=== PATIENT | male | born 1965 | race Caucasian/White ===

== ENCOUNTER → 2016-08-23 | Outpatient (CLI) | payer OTHER | LOC: M LAB 13:51 | PROVIDERS: ATTEND Internal Medicine Gastroenterology | DX: K90.0 Celiac disease (principal); K21.9 Gastro-esophageal reflux disease without esophagitis ==

== ENCOUNTER 2017-11-24 12:34 | Day surgery (SDC) | payer OTHER ==
[2017-11-24] MEDS: NS 1,000 ML IV (13:40)
[2017-11-24] MEDS ORDERED: fentaNYL 100 MCG/2 ML INJECTION (J3010) As Ordered (14:20)
[2017-11-24] MEDS ORDERED: PROPOFOL 200 MG/20 ML VIAL As Ordered (14:21)
[2017-11-24] MEDS ORDERED: LIDOCAINE 2% INJ 100 MG/5 ML SDV (FOR ANES.) As Ordered (14:21)
== END 2017-11-24 15:30 | disposition home or self-care (01) ==
LOC: M SDC 15:30
DX: K90.0 Celiac disease (principal); Z12.11 Encounter for screening for malignant neoplasm of colon; M54.5 Low back pain; Z88.1 Allergy status to other antibiotic agents; Z88.5 Allergy status to narcotic agent; Z79.899 Other long term (current) drug therapy
CPT/HCPCS: 43239

== ENCOUNTER → 2019-04-11 | Outpatient (CLI) | payer OTHER ==
[~2019-04-11] MED LIST: TIZA4CAP PO; TRAM50TA2 PO
[2019-04-11 11:33] LABS: FREE T4 0.83 NG/DL (0.76-1.46); IMMUNOGLOBULIN A 52.4 MG/DL (70-400); THYROID STIMULATING HORMONE 1.47 uIU/ML (0.358-3.740)
== END ==
LOC: M LAB 09:31
PROVIDERS: ATTEND Internal Medicine Gastroenterology
DX: R15.1 Fecal smearing (principal)

== ENCOUNTER → 2019-05-23 | Outpatient (CLI) | payer OTHER ==
[~2019-05-23] MED LIST changes: +E-Z-PAQUE 96% w/w SUSP 176GM BTL As Ordered ONE
--- NOTE | 2019-05-23 14:38 | REP ---
Examination Requested: SBFT Reason For Exam: Fecal Smearing Small Bowel Follow Through The procedure was performed by NICOLA Houston, under the direct supervision of Dr. Hickman. The images were reviewed with Dr. Hickman. The guidance consultant film shows no organomegaly or pathological masses. The intestinal gas pattern appears normal. There is a dorsal column stimulator. There is a fusion of the L4, L5 and S1. The barium was administered and the barium column was followed through the small bowel to the level of the terminal ileum. Small bowel transit time was approximately 20 minutes. During fluoroscopy gentle palpation shows all loops are freely mobile and pliable. There are no fixed or angulated loops. The small bowel mucosal pattern is normal in course and caliber. There is no transition to suggest a partial small-bowel obstruction. Spot filming of the terminal ileum shows it to be unremarkable. The appendix was visualized. Impression: 1. Unremarkable small bowel follow-through 0.5 minutes of fluoroscopy time was utilized for this procedure. Some fluoroscopic images are performed with last image hold technology. These images require no additional radiation. Reviewed by NICOLA Jennings 05/23/2019 01:57 P Electronically Signed by Uriel Hickman MD 05/23/2019 02:29 P
== END ==
LOC: M RAD 08:31
PROVIDERS: ATTEND Internal Medicine Gastroenterology
DX: R15.1 Fecal smearing (principal)

== ENCOUNTER → 2020-01-15 | Outpatient (CLI) | payer OTHER ==
[~2020-01-15] MED LIST changes: +CETI10CA2 PO; +CITA20TA6; -E-Z-PAQUE 96% w/w SUSP 176GM BTL As Ordered ONE; +LIDO1PAD
== END ==
LOC: M LABSMTC 13:52
PROVIDERS: ATTEND Anesthesiology
DX: Z01.812 Encounter for preprocedural laboratory examination (principal); Z20.828 Contact with and (suspected) exposure to other viral communicable diseases
CPT/HCPCS: C9803; U0003

== ENCOUNTER 2020-01-20 12:11 | Day surgery (SDC) | payer OTHER ==
[~2020-01-20] VITALS: Ht 172.7 cm; Wt 78.5 kg
[~2020-01-20 12:11] MED LIST changes: -CETI10CA2 PO; +NS 1,000 ML IV ONE
[2020-01-20] MEDS ORDERED: CETI10CA2 PO (13:52)
[2020-01-20] MEDS ORDERED: propofoL 500 MG/50 ML VIAL As Ordered ONE (14:22)
[2020-01-20] MEDS ORDERED: fentaNYL 100 MCG/2 ML INJECTION (J3010) As Ordered ONE (14:22)
[2020-01-20] MEDS ORDERED: LIDOCAINE 2% 100MG/5ML SDV (FOR ANES.) As Ordered ONE (14:22)
--- NOTE | 2020-01-20 14:35 | ROOR ---
Patient Name: Chadwick Trevino Procedure Date: 01/20/2020 2:20 PM Date of : 1965 Age: 54 Room: [facility] Gender: Male Note Status: Finalized Procedure: Upper GI endoscopy Indications: Celiac disease, Selective IgA deficiency, Diarrhea Providers: Lorenzo SEBASTIAN MD Referring MD: JACOB CONLEY MD Requesting Provider: Medicines: Monitored Anesthesia Care Complications: No immediate complications. Procedure: Pre-Anesthesia Assessment: - The heart rate, respiratory rate, oxygen saturations, blood pressure, adequacy of pulmonary ventilation, and response to care were monitored throughout the procedure. The Endoscope was introduced through the mouth, and advanced to the third part of duodenum. The upper GI endoscopy was accomplished without difficulty. The patient tolerated the procedure well. Findings: The esophagus was normal. The stomach was normal. The examined duodenum was normal. Biopsies for histology were taken with a cold forceps in the second portion of the duodenum and in the third portion of the duodenum for evaluation of celiac disease. Impression: - Normal esophagus. - Normal stomach. - Normal examined duodenum. - Biopsies were taken with a cold forceps for evaluation of celiac disease. Recommendation: - Await pathology results. - Telephone endoscopist for pathology results in 2 weeks. Lorenzo Sebastian MD Lorenzo SEBASTIAN MD 01/20/2020 2:34:15 PM Electronically signed by Lorenzo SEBASTIAN MD Number of Addenda: 0 Note Initiated On: 01/20/2020 2:20 PM Estimated Blood Loss: Estimated blood loss: none.
--- NOTE | 2020-01-20 14:49 | ROOR ---
Patient Name: Chadwick Trevino Procedure Date: 01/20/2020 2:21 PM Date of : 1965 Age: 54 Room: [facility] Gender: Male Note Status: Finalized Procedure: Colonoscopy Indications: Clinically significant diarrhea of unexplained origin, Diarrhea Providers: Lorenzo SEBASTIAN MD Referring MD: JACOB CONLEY MD Requesting Provider: Medicines: Monitored Anesthesia Care Complications: No immediate complications. Procedure: Pre-Anesthesia Assessment: - The heart rate, respiratory rate, oxygen saturations, blood pressure, adequacy of pulmonary ventilation, and response to care were monitored throughout the procedure. The Colonoscope was introduced through the anus and advanced to 20 cm into the ileum. The colonoscopy was performed without difficulty. The patient tolerated the procedure well. The quality of the bowel preparation was good. Findings: The perianal and digital rectal examinations were normal. Pertinent negatives include no anal lesion or abnormality. The colon (entire examined portion) appeared normal. Biopsies for histology were taken with a cold forceps for evaluation of microscopic colitis. The terminal ileum contained three localized aphthae. This was biopsied with a cold forceps for histology. Impression: - The entire colon is normal. Biopsied. - 3 tiny aphtha in the terminal ileum. Biopsied. Recommendation: - While the three tiny aphta in the terminal ileum are likely "normal" or insignificant, they may also be a possible sign for crohns disease in some cases--to delineate, I would recommend a capsule endoscopy. - To visualize the small bowel, perform video capsule endoscopy at appointment to be scheduled. - My office will call you in the next few days to set you up for this study/exam. Lorenzo Sebastian MD Lorenzo SEBASTIAN MD 01/20/2020 2:49:29 PM Electronically signed by Lorenzo SEBASTIAN MD Number of Addenda: 0 Note Initiated On: 01/20/2020 2:21 PM Estimated Blood Loss: Estimated blood loss: none.
[2020-01-20 15:10] VITALS: BP 106/57
== END 2020-01-20 15:28 | disposition home or self-care (01) ==
LOC: M OPP 12:11
PROVIDERS: ATTEND Internal Medicine Gastroenterology
DX: K63.89 Other specified diseases of intestine (principal); R19.7 Diarrhea, unspecified; K90.0 Celiac disease; D80.2 Selective deficiency of immunoglobulin A [IgA]; Z79.891 Long term (current) use of opiate analgesic; Z79.899 Other long term (current) drug therapy; Z88.5 Allergy status to narcotic agent; Z88.8 Allergy status to other drugs, medicaments and biological substances; Z91.018 Allergy to other foods; Z87.891 Personal history of nicotine dependence
CPT/HCPCS: 43239; 45380; 88305; J3010

== ENCOUNTER → 2020-02-26 | Outpatient (CLI) | payer OTHER ==
[~2020-02-26] MED LIST changes: +CETI10CA2 PO; -NS 1,000 ML IV ONE
--- NOTE | 2020-02-27 01:51 | REP ---
INDICATION: FB IN COLON AND SM INTESTINE: NEEDS BE TO DONE BTN 130 . COMPARISON: None. TECHNIQUE: Four views of the abdomen and pelvis. FINDINGS: The bowel gas pattern suggests moderate fecal stasis without obstruction and no intraluminal foreign body identified. Evidence for prior lumbar laminectomy and fixation noted. IMPRESSION: No foreign body identified. Moderate fecal stasis. <Electronically signed by Douglas Ortega > 02/27/20 0147
== END ==
LOC: M RAD 13:27
PROVIDERS: ATTEND Internal Medicine Gastroenterology
DX: T18.4XXA Foreign body in colon, initial encounter (principal); T18.3XXA Foreign body in small intestine, initial encounter

== ENCOUNTER → 2021-04-19 | Outpatient (CLI) | payer OTHER ==
[2021-04-19 13:14] LABS: ALBUMIN 3.7 GM/DL (3.2-5.2); ALT/SGPT 45 U/L (12-78); BILIRUBIN,DIRECT < 0.1 MG/DL (0.0-0.2); BILIRUBIN,TOTAL 0.2 MG/DL (0.2-1.0); IRON (FE) 102 UG/DL (65-175); PERCENT SATURATION 30.4 % (19.7-50.0); TOTAL IRON BINDING CAPACITY 335 UG/DL (250-450); TOTAL PROTEIN 8.5 GM/DL (6.4-8.2)
[2021-04-19 13:32] LABS: VITAMIN B12 LEVEL 758 PG/ML (247-911)
[2021-04-19 13:43] LABS: HEPATITIS B SURFACE ANTIGEN NEGATIVE (NEGATIVE)
[2021-04-19 14:09] LABS: HEPATITIS C VIRUS ABY INDEX < 0.0 INDEX (<0.8)
[2021-04-19 14:10] LABS: HEPATITIS B CORE ANTIBODY IGM NEGATIVE (NEGATIVE)
== END ==
LOC: M LAB 09:56
PROVIDERS: ATTEND Internal Medicine Gastroenterology
DX: R74.8 Abnormal levels of other serum enzymes (principal)

== ENCOUNTER → 2021-04-28 | Outpatient (CLI) | payer OTHER | LOC: M RAD 08:11 | PROVIDERS: ATTEND Internal Medicine Gastroenterology | DX: R74.8 Abnormal levels of other serum enzymes (principal) ==